=== PATIENT | male | born 1950 | race Caucasian/White ===

== ENCOUNTER 2017-02-06 13:20 | Outpatient (CLI) | payer MEDICARE, BC ==
--- NOTE | 2017-02-06 15:47 | RAD ---
FOUR VIEWS OF THE LUMBAR SPINE: DATE: 02/06/17. COMPARISON: None. HISTORY: Low back pain with pain radiating down the right leg and into the lateral right thigh. FINDINGS: There is prominent anterolisthesis at the lumbosacral junction on the neutral imaging measuring 2.5 c m. Thus, bilateral L5 pars defects are suspected. On the flexion imaging, the anterolisthesis of L5 on S1 measures 2.6 cm and on extension imaging L5-S1 anterolisthesis measures 2.6 cm. There is prom inent multilevel lower lumbar spine facet hypertrophic change. There is multilevel disk space narrow ing and anterior osteophyte formation within the lower thoracic spine and the upper lumbar spine. At L1-2, there is mild retrolisthesis in the 4-5 mm range, unchanged with flexion and extension. IMPRESSION: Prominent anterolisthesis of L5 on S1 measuring 2.5-2.6 cm as detailed above. POS: BHAVIK
== END 2017-02-06 13:21 | disposition home or self-care (01) ==
LOC: TBSIIMAG 13:20
PROVIDERS: ATTEND Neurological Surgery
DX: M54.16 Radiculopathy, lumbar region (principal); Z98.890 Other specified postprocedural states
CPT/HCPCS: 72110; 72148

== ENCOUNTER 2017-02-18 11:41 | Day surgery (SDC) | payer MEDICARE, BC ==
[2017-02-17 11:34] VITALS: BMI 33.2
[2017-02-18] MEDS ORDERED: Diprivan 20 ML ONE (14:24)
[2017-02-18] MEDS ORDERED: Fentanyl 100 MCG/2 ML VIAL ONE (15:15)
--- NOTE | 2017-02-18 16:37 | MRI ---
EXAM: LUMBAR SPINE MRI WITHOUT CONTRAST 02/18/17 HISTORY: Lumbar radiculopathy. Back pain. Right hip, leg and knee pain. COMPARISON: None. TECHNIQUE: Lumbar spine MRI is performed without intravenous gadolinium administration. Multisequential, multipl bridgett imaging is performed. FINDINGS: Limited evaluation due to motion degradation. There is intrinsic T1 and T2 hyperintensity at the L1 l evel, compatible with hemangioma. There is grade II (1.6 cm) anterolisthesis of L5 upon S1. There is associated bilateral pars defects. Symmetric signal intensity of the psoas muscles. Appropriate signal intensity in visualized solid org ans. The conus medullaris terminates at the mid to lower aspect of T12. T12-L1: No high grade central canal stenosis. No high grade foraminal narrowing. L1-L2: Minimal disc desiccation. No significant posterior disc abnormality. No significant central ca nal stenosis. Mild right foraminal narrowing. Left neural foramen is patent. L2-L3: Disc desiccation without significant loss of disc space height. Generalized disc bulge, ligame ntum flavum thickening and facet hypertrophy result in mild central canal stenosis. Moderate bilatera l foraminal narrowing. L3-L4: Minimal disc desiccation without significant loss of disc space height. Generalized disc bulge does not cause any significant central canal stenosis. Mild posterior element hypertrophy. Neural fo ramina are patent bilaterally. L4-L5: Disc desiccation without significant loss of disc space height. No high grade central canal st enosis. Mild right and severe left foraminal narrowing. There is inferior disc extrusion into the rig ht subarticular zone. Disc material abuts but does not completely obscure the traversing right L5 ner ve root. L5-S1: Disc desiccation with severe loss of disc space height. Limited evaluation of the central spin al canal. No high grade central canal stenosis. Severe right and left foraminal narrowing. IMPRESSION: 1. Grade II anterolisthesis of L5 upon S1 with associated spondylolysis. 2. Significant foraminal stenosis at L4-L5 and L5-S1. 3. Inferior disc extrusion at the L4-L5 level. Disc material abuts but does not completely obscu re the traversing right L5 nerve root. POS: [facility]
== END 2017-02-18 16:31 | disposition home or self-care (01) ==
LOC: SDC/OP 11:41 → EDSTATUS 14:00 → SDC/OP 16:31
PROVIDERS: ATTEND Neurological Surgery
DX: M54.16 Radiculopathy, lumbar region (principal); I10 Essential (primary) hypertension; E78.5 Hyperlipidemia, unspecified; G47.30 Sleep apnea, unspecified; Z79.84 Long term (current) use of oral hypoglycemic drugs; Z79.899 Other long term (current) drug therapy; Z88.1 Allergy status to other antibiotic agents; Z98.890 Other specified postprocedural states
CPT/HCPCS: 72148; 96374; J2704; J3010

== ENCOUNTER 2017-03-17 08:45 | Inpatient (IN) | payer MEDICARE, BC ==
[2017-03-24] MEDS ORDERED: Sodium Chloride 0.9% 10 ML ONE (06:29)
[2017-03-24] MEDS ORDERED: Phenylephrine 10 MG/NS 250 ML 0 ML ONE (07:01)
[2017-03-24] MEDS ORDERED: Clindamycin/D5W 900 mg/50 ml Premix Bag ONE (07:01)
[2017-03-24] MEDS ORDERED: Vecuronium 10 MG VIAL ONE (07:01)
[2017-03-24] MEDS ORDERED: Levofloxacin 500 mg/D5W 100 ml Premix Bag ONE (07:01)
[2017-03-24] MEDS ORDERED: Albumin 5% 0 ML ONE (07:01)
[2017-03-24] MEDS ORDERED: Midazolam HCl 2 mg/2 ml Vial ONE (07:18)
[2017-03-24] MEDS ORDERED: Fentanyl 250 MCG/5 ML VIAL ONE (07:19)
[2017-03-24] MEDS ORDERED: Ondansetron HCl/PF 4 MG/2 ML Vial IVP PRN (08:38)
[2017-03-24] MEDS ORDERED: Promethazine HCl 25 MG/ML VIAL SLOW IVP PRN (08:38)
[2017-03-24] MEDS ORDERED: Meperidine HCl/PF 25 MG/ML VIAL SLOW IVP PRN (08:38)
[2017-03-24] MEDS ORDERED: HYDROmorphone 2 MG/ML VIAL SLOW IVP PRN (08:38)
[2017-03-24] MEDS ORDERED: Promethazine HCl 25 MG/ML VIAL IM PRN ×2 (08:38→15:44)
[2017-03-24] MEDS ORDERED: Morphine Sulfate 2 MG/ML SYRINGE SLOW IVP PRN (08:38)
--- NOTE | 2017-03-24 09:42 | OP ---
DATE OF PROCEDURE: 03/24/2017 SURGEON: Oral Zaman M.D. COMPTOMETER OPERATOR: Koby Eason PROCEDURES: L5-S1 right laminectomy, facetectomy, foraminotomy, posterolateral arthrodesis, pedicle screw instrumentation L5-S1, demineralized bone matrix, local morselized autograft. PROCEDURE IN DETAIL: The patient was brought the operating room, intubated. He was rolled in the pr one position on gel-filled chest rolls. Incision made exposing L5 and S1 bilaterally and our level w as confirmed by x-ray. We performed a right L5-S1 laminectomy, facetectomy, and foraminotomy complet brenda decompressing the right L5 nerve root. As expected, there were severe bilateral pars defects. We next placed pedicle screws at L5 and S1 bilaterally using lateral fluoroscopic guidance and the po sitioning was confirmed with rotational x-ray. A malgorzata was secured between the screws. Distraction an d reduction was applied bilaterally. All nuts were final tightened. The wound was then extensively irrigated, immaculate hemostasis was secured. A combination of demineralized bone matrix and local m orselized autograft was laid over the laminar surfaces on the left. Vancomycin powder was applied an d the wound was closed in anatomic layers.
[2017-03-24] MEDS ORDERED: Fentanyl 100 MCG/2 ML VIAL ONE ×2 (09:56→10:42)
[2017-03-24] MEDS ORDERED: Ketorolac Tromethamine 30 MG/ML VIAL ONE (10:03)
[2017-03-24] MEDS ORDERED: Ondansetron HCl/PF 4 MG/2 ML Vial ONE (15:04)
[2017-03-24] MEDS ORDERED: Lidocaine 1% PF 5 ML VIAL ONE (15:04)
[2017-03-24] MEDS ORDERED: Metoclopramide HCl 10 MG/2 ML VIAL ONE (15:04)
[2017-03-24] MEDS ORDERED: ePHEDrine/0.9% NaCl/PF SYRINGE 50 mg/10 ml ONE (15:04)
[2017-03-24] MEDS ORDERED: PROPOFOL 200 MG/20 ML VIAL ONE (15:04)
[2017-03-24] MEDS ORDERED: Dexamethasone 20 MG/5 ML VIAL ONE (15:04)
[2017-03-24] MEDS ORDERED: PHENYLEPHRINE-NS 100 MCG/ML 10 ML SYRINGE ONE (15:04)
[2017-03-24] MEDS ORDERED: Glycopyrrolate 0.2 MG/ML 5 ML SYRINGE ONE (15:04)
[2017-03-24] MEDS ORDERED: Promethazine 25 MG TAB PO PRN (15:44)
[2017-03-24] MEDS ORDERED: diphenhydrAMINE 50 MG/ML VIAL IVP PRN (15:44)
[2017-03-24] MEDS ORDERED: traMADol HCl 50 MG TAB PO PRN (15:44)
[2017-03-24] MEDS ORDERED: HYDROcodone/Acetaminophen 10/325 mg Tablet PO PRN (15:44)
[2017-03-24] MEDS ORDERED: Milk Of Magnesia 30 ML UDCUP PO PRN (15:44)
[2017-03-24] MEDS ORDERED: diphenhydrAMINE 25 MG CAP PO PRN (15:44)
[2017-03-24] MEDS ORDERED: Promethazine HCl 12.5 MG SUPP PR PRN (15:44)
[2017-03-24] MEDS ORDERED: Mag-Al 1200 mg/1200 mg/30 ML UDCUP PO PRN (15:44)
[2017-03-24] MEDS ORDERED: Ondansetron HCl/PF 4 MG/2 ML Vial IM PRN (15:44)
[2017-03-24] MEDS ORDERED: Morphine 2 MG/ML SYRINGE SLOW IVP PRN (15:51)
[2017-03-24] MEDS ORDERED: Morphine 5 MG/ML SYRINGE SLOW IVP PRN (15:52)
[2017-03-24] MEDS: Sodium Chloride 0.9% 1,000 ML IV SCH (16:15)
[2017-03-24] MEDS: HYDROcodone/Acetaminophen 10/325 mg Tablet PO PRN ×2 (18:23→23:18)
[2017-03-24] MEDS: Tamsulosin HCl 0.4 MG CAP PO SCH (22:07)
[2017-03-24] MEDS: Magnesium Oxide 400 MG TAB PO SCH (22:08)
[2017-03-24] MEDS: metFORMIN 500 MG TAB PO SCH (22:08)
[2017-03-24] MEDS: Pravastatin Sodium 40 MG TAB PO SCH (22:09)
[2017-03-24] MEDS: Finasteride 5 MG TAB PO SCH (22:09)
[2017-03-24] MEDS: Stress 600 With Zinc 1 TAB PO SCH (23:20)
[2017-03-25] MEDS: HYDROcodone/Acetaminophen 10/325 mg Tablet PO PRN ×4 (04:22→16:29)
[2017-03-25] MEDS: Sodium Chloride 0.9% 1,000 ML IV SCH ×2 (04:29→19:49)
[2017-03-25] MEDS ORDERED: Clopidogrel Bisulfate 75 MG TAB ONE (07:58)
[2017-03-25] MEDS: metFORMIN 500 MG TAB PO SCH ×2 (08:03→21:40)
[2017-03-25] MEDS: Lisinopril 20 MG TAB PO SCH (08:04)
[2017-03-25] MEDS: Multivit, Therapeutic 1 TAB PO SCH (08:04)
[2017-03-25] MEDS: Glimepiride 2 MG TAB PO SCH ×2 (08:06→16:34)
[2017-03-25 12:30] VITALS: BMI 32.1
[2017-03-25] MEDS: Magnesium Oxide 400 MG TAB PO SCH (21:39)
[2017-03-25] MEDS: tiZANidine HCl 4 MG TAB PO PRN (21:39)
[2017-03-25] MEDS: traMADol HCl 50 MG TAB PO PRN (21:40)
[2017-03-25] MEDS: Pravastatin Sodium 40 MG TAB PO SCH (21:40)
[2017-03-25] MEDS: Finasteride 5 MG TAB PO SCH (21:40)
[2017-03-25] MEDS: Tamsulosin HCl 0.4 MG CAP PO SCH (21:40)
[2017-03-25] MEDS: Stress 600 With Zinc 1 TAB PO SCH (21:42)
[2017-03-26] MEDS: Glimepiride 2 MG TAB PO SCH ×2 (06:50→16:17)
[2017-03-26] MEDS ORDERED: Fleet Enema 133 ML BOT FS PRN (08:44)
[2017-03-26] MEDS ORDERED: Dexamethasone 10 MG/ML VIAL SLOW IVP SCH (08:45)
[2017-03-26] MEDS: Lisinopril 20 MG TAB PO SCH (09:18)
[2017-03-26] MEDS: HYDROcodone/Acetaminophen 10/325 mg Tablet PO PRN (09:18)
[2017-03-26] MEDS: metFORMIN 500 MG TAB PO SCH ×2 (09:18→20:14)
[2017-03-26] MEDS: Multivit, Therapeutic 1 TAB PO SCH (09:19)
[2017-03-26] MEDS: Sodium Chloride 0.9% 1,000 ML IV SCH ×2 (09:20→21:13)
[2017-03-26] MEDS: traMADol HCl 50 MG TAB PO PRN (12:46)
[2017-03-26] MEDS: tiZANidine HCl 4 MG TAB PO PRN (12:46)
[2017-03-26] MEDS ORDERED: Dextrose 5% in Water 1,000 ML IV PRN (16:34)
[2017-03-26] MEDS ORDERED: Dextrose 50% Abboject 50 ML SYRINGE IVP PRN (16:34)
[2017-03-26] MEDS: HumaLOG 300 UNITS/3 ML VIAL SC PRN ×2 (17:14→20:59)
[2017-03-26] MEDS: Finasteride 5 MG TAB PO SCH (20:14)
[2017-03-26] MEDS: Magnesium Oxide 400 MG TAB PO SCH (20:14)
[2017-03-26] MEDS: Pravastatin Sodium 40 MG TAB PO SCH (20:14)
[2017-03-26] MEDS: Tamsulosin HCl 0.4 MG CAP PO SCH (20:14)
[2017-03-26] MEDS: Stress 600 With Zinc 1 TAB PO SCH (20:14)
--- NOTE | 2017-03-26 20:41 | PDOC.PN ---
- Subjective Encounter Start Date: 03/26/17 Encounter Start Time: 20:39 Pt seen for management of medical comorbidities, including diabetes mellitus. No chest pain or shortness of breath. - Objective MAR Reviewed: Yes Vital Signs & Weight: Vital Signs (12 hours) Temp Pulse Pulse Pulse Resp BP BP 03/26/17 20:00 97.6 F 95 19 03/26/17 16:34 98 F 84 20 03/26/17 12:57 98.2 F 100 16 03/26/17 09:54 100 93 137/73 03/26/17 09:18 132/81 03/26/17 09:03 98 F 98 16 BP BP Pulse Ox 03/26/17 20:00 126/68 93 L 03/26/17 16:34 116/70 92 L 03/26/17 12:57 157/83 H 93 L 03/26/17 09:54 157/75 H 03/26/17 09:18 03/26/17 09:03 159/82 H 96 Weight Weight 244 lb I&O: 03/25/17 03/26/17 03/27/17 06:59 06:59 06:59 Intake Total 1875 1080 Output Total 325 Balance 1875 755 Additional Labs: Accuchecks 03/26/17 03/26/17 03/26/17 20:23 15:55 11:03 POC Glucose 282 H 433 H 213 H 03/26/17 03/25/17 05:32 20:45 POC Glucose 174 H 245 H Phys Exam - Physical Examination Obese HEENT: moist MMs, oral pharynx no lesions Neck: supple Cardiovascular: RRR Gastrointestinal: soft Neurological: moves all 4 limbs Psychiatric: normal affect Dx/Plan (1) DM2 (diabetes mellitus, type 2) Status: Chronic (2) HTN (hypertension) Code(s): I10 - ESSENTIAL (PRIMARY) HYPERTENSION Status: Chronic (3) DUGLAS (obstructive sleep apnea) Code(s): G47.33 - OBSTRUCTIVE SLEEP APNEA (ADULT) (PEDIATRIC) Status: Chronic (4) Chronic back pain Code(s): M54.9 - DORSALGIA, UNSPECIFIED; G89.29 - OTHER CHRONIC PAIN Status: Chronic - Plan plan discussed w/ family * . Continue insulin sliding scale (aggressive), continue accuchecks. Hyperglycemia likely a combination of steroids and stress response. Monitor vital sighns, titrate antihypertensives as needed. PRN IV hydralazine. CPAP use when asleep. s/p back surgery. DVT prophylaxis and pain management per neurosurgery service. Code status: full Review of Systems - Review of Systems Respiratory: negative: Cough, Dry, Shortness of Breath, Hemoptysis, SOB with Excertion, Pleuritic Pain, Sputum, Wheezing Cardiovascular: negative: chest pain, palpitations, orthopnea, paroxysmal nocturnal dyspnea, edema, light headedness - Medications/Allergies Allergies/Adverse Reactions: Allergies Allergy/AdvReac Type Severity Reaction Status Date / Time cephalexin [From Keflex] Allergy itching Verified 03/17/17 09:26 and swelling Medications: Current Medications Hydrocodone Bitart/Acetaminophen ([place] 10/325) 1 tab PO Q4H PRN PRN Reason: PAIN (1-3) Last Admin: 03/25/17 21:41 Dose: 1 tab Hydrocodone Bitart/Acetaminophen ([place] 10/325) 2 tab PO Q4H PRN PRN Reason: PAIN (4-6) Last Admin: 03/26/17 09:18 Dose: 2 tab Al Hydroxide/Mg Hydroxide (Maalox) 30 ml PO Q4H PRN PRN Reason: Heartburn or Indigestion Dextrose/Water (Dextrose 50%) 25 gm IVP PRN PRN PRN Reason: HYPOGLYCEMIA PROTOCOL Diphenhydramine HCl (Benadryl) 25 mg PO Q6H PRN PRN Reason: Itching Diphenhydramine HCl (Benadryl) 25 mg IVP Q6H PRN PRN Reason: Itching Finasteride (Proscar) 5 mg PO HS [facility] Last Admin: 03/26/17 20:14 Dose: 5 mg Glimepiride (Amaryl) 2 mg PO BID-AC [facility] Last Admin: 03/26/17 16:17 Dose: 2 mg Glucagon (Glucagon) 1 mg IM PRN PRN PRN Reason: HYPOGLYCEMIA PROTOCOL Sodium Chloride (Normal Saline 0.9%) 1,000 mls @ 75 mls/hr IV .[id number] [facility] Last Admin: 03/26/17 09:20 Dose: Not Given Dextrose/Water (D5w) 1,000 mls @ 0 mls/hr IV INF PRN; As Directed PRN Reason: HYPOGLYCEMIA PROTOCOL Insulin Human Lispro (Humalog) 0 units SC .AGGRESSIVE SLIDING PRN; Protocol PRN Reason: AGGRESSIVE SLIDING SCALE Last Admin: 03/26/17 17:14 Dose: 13 unit Lisinopril (Zestril) 20 mg PO DAILY [facility] Last Admin: 03/26/17 09:18 Dose: 20 mg Magnesium Hydroxide (Milk Of Magnesium) 30 ml PO Q12H PRN PRN Reason: Constipation Last Admin: 03/26/17 06:50 Dose: 30 ml Magnesium Oxide (Magnesium Oxide) 400 mg PO HS [facility] Last Admin: 03/26/17 20:14 Dose: 400 mg Metformin HCl (Glucophage) 1,000 mg PO BID [facility] Last Admin: 03/26/17 20:14 Dose: 1,000 mg Morphine Sulfate (Morphine) 2 mg SLOW IVP Q1H PRN PRN Reason: Moderate Breakthrough Pain Last Admin: 03/24/17 16:10 Dose: 2 mg Morphine Sulfate (Morphine) 4 mg SLOW IVP Q1H PRN PRN Reason: Severe Breakthrough Pain Multivitamins (Theragran) 1 tab PO DAILY [facility] Last Admin: 03/26/17 09:19 Dose: 1 tab Multivitamins/Zinc (Stress 600 With Zinc) 1 tab PO QPM [facility] Last Admin: 03/26/17 20:14 Dose: 1 tab Ondansetron HCl (Zofran) 4 mg IM Q24H PRN PRN Reason: Nausea/Vomiting Pantoprazole Sodium (Protonix) 20 mg PO DAILY [facility] Last Admin: 03/26/17 09:19 Dose: 20 mg Pravastatin Sodium (Pravachol) 40 mg PO HS [facility] Last Admin: 03/26/17 20:14 Dose: 40 mg Promethazine HCl (Phenergan) 12.5 mg IM Q4H PRN PRN Reason: Nausea/Vomiting Promethazine HCl (Phenergan) 12.5 mg PO Q4H PRN PRN Reason: Nausea/Vomiting Promethazine HCl (Phenergan Suppository) 12.5 mg [place] Q4H PRN PRN Reason: Nausea/Vomiting Sodium Biphosphate/Sodium Phosphate (Fleet Enema) 133 ml FS WILLCALL PRN PRN Reason: CONSTIPATION Last Admin: 03/26/17 13:54 Dose: 133 ml Sodium Chloride (Flush - Normal Saline) 10 ml IVF PRN PRN PRN Reason: Saline Flush Last Admin: 03/25/17 21:39 Dose: 10 ml Tamsulosin HCl (Flomax) 0.4 mg PO HS [facility] Last Admin: 03/26/17 20:14 Dose: 0.4 mg Tizanidine HCl (Zanaflex) 4 mg PO Q6H PRN PRN Reason: MUSCLE SPASM Last Admin: 03/26/17 12:46 Dose: 4 mg Tramadol HCl (Ultram) 50 mg PO Q6H PRN PRN Reason: PAIN (1-3) Last Admin: 03/24/17 22:06 Dose: 50 mg Tramadol HCl (Ultram) 100 mg PO Q6H PRN PRN Reason: PAIN (4-6) Last Admin: 03/26/17 12:46 Dose: 100 mg
[2017-03-26] MEDS ORDERED: hydrALAZINE 20 MG/ML VIAL SLOW IVP PRN (20:48)
[2017-03-27] MEDS: tiZANidine HCl 4 MG TAB PO PRN ×2 (03:09→11:49)
[2017-03-27] MEDS: traMADol HCl 50 MG TAB PO PRN (03:09)
[2017-03-27] MEDS: Glimepiride 2 MG TAB PO SCH (06:37)
[2017-03-27] MEDS: HumaLOG 300 UNITS/3 ML VIAL SC PRN ×2 (06:37→11:50)
[2017-03-27] MEDS: Lisinopril 20 MG TAB PO SCH (09:59)
[2017-03-27] MEDS: Multivit, Therapeutic 1 TAB PO SCH (10:00)
[2017-03-27] MEDS: metFORMIN 500 MG TAB PO SCH (10:00)
[2017-03-27 11:42] VITALS: BP 150/70; TEMP 97.6
[2017-03-27] MEDS: Sodium Chloride 0.9% 1,000 ML IV SCH (11:46)
[2017-03-27] MEDS: HYDROcodone/Acetaminophen 10/325 mg Tablet PO PRN (11:49)
--- NOTE | 2017-03-27 15:22 | PDOC.EVN ---
Event Note - Event Note Event Note: Pt DCed by primary team. Chart,meds reviewed and Med rec done. Ok to Dc from IM stand point.Pt not seen due to discharged status
--- NOTE | 2017-03-28 14:35 | DIS ---
DATE OF DISCHARGE: 03/27/2017 DISCHARGE SUMMARY: Patient is a 66-year-old male with a past medical history of diabetes, hypertension, chronic back pain, who was seen recently in our clinic regarding his worsening low back pain and right L5 radiculopathy. His MRI revealed L5-S1 spondylolisthesis and patient was recommend ed for L5-S1 decompression and fusion. The patient underwent L5-S1 decompression and fusion on 03/24 without complication. Following the surgery, the patient was slow to mobilized secondary to pa in as well as generalized deconditioning. He was tolerating regular diet, voiding appropriately. He initially had some issues with constipation, but this was improved with a bowel regimen of Milk of M agnesia and Fleet enema x1. His pain was well controlled with p.o. [place] and tizanidine. He did hav e a new left leg pain in a radicular L5 and partially S1 pattern. He was treated with 10 mg of IV De cadron x1 and this did improved his pain; however, it caused elevated glucose with the hospitalist co nsulted for assisted management of his hyperglycemia and this resolved with insulin treatment. Blake franco worked with physical therapy and occupational therapy during this admission course, and was recomm ended for inpatient rehabilitation. His incision remains dry without evidence of infection during hi s admission course. He was discharged to inpatient rehabilitation on 03/27/2017. We will plan to fo llow up with the patient in the office in 2 weeks for recheck and x-rays at that time. The patient's care precautions and reasons to reach out to us sooner. Please reach out to the Neurosurgery Servic e for additional questions or concerns.
== END 2017-03-27 13:45 | DRG 460 ==
LOC: SJJU 03-24 05:30 → SURG B 03-24 13:54
PROVIDERS: ADMIT Neurological Surgery; ATTEND Neurological Surgery
PROC: 0SG3071 Fusion of Lumbosacral Joint with Autologous Tissue Substitute, Posterior Approach, Posterior Column, Open Approach (ICD-10-PCS; principal; 2017-03-24)
PROC: 01NB0ZZ Release Lumbar Nerve, Open Approach (ICD-10-PCS; 2017-03-24)
PROC: 8E0WXBF Computer Assisted Procedure of Trunk Region, With Fluoroscopy (ICD-10-PCS; 2017-03-24)
DX: M43.17 Spondylolisthesis, lumbosacral region (principal); E11.9 Type 2 diabetes mellitus without complications; K59.00 Constipation, unspecified; I10 Essential (primary) hypertension; G47.33 Obstructive sleep apnea (adult) (pediatric); G89.29 Other chronic pain
CPT/HCPCS: 36416; 76001; 96374; A4216; C1713; C1768; G8978-GP-CM; G8979-GP-CK; G8987-GO-CL; G8988-GO-CI; J0131; J1100; J1885; J1956; J2001; J2250; J2270; J2405; J2704; J2765; J3010; J3370; J3490; P9045

== ENCOUNTER 2017-03-17 08:45 | Outpatient (CLI) | payer MEDICARE, BC ==
[2017-03-17 11:09] LABS: Mean Corpuscular HGB CONC 33.2 g/dL (32.0-36.0); Mean Corpuscular Hemoglobin 31.2 pg (27.0-31.0); Mean Corpuscular Volume 94.1 fl (80.0-94.0); Mean Platelet Volume 6.9 fL (7.4-10.4); Platelet Count 182 thou/uL (130-400); RBC Distribution Width 11.6 % (11.5-14.5); Red Blood Cell (RBC) Count 4.81 mill/uL (4.70-6.10)
[2017-03-17 11:25] LABS: Anion Gap 14 mmol/L (10-20); BUN (Urea Nitrogen) 17 mg/dL (8.4-25.7); Calc. Creatinine Clearance 0 mL/min (70-130); Calcium 9.5 mg/dL (7.8-10.44); Carbon Dioxide 28 mmol/L (23-31); Chloride 101 mmol/L (98-107); Estimated GFR-MDRD 86; Glucose 105 mg/dL (80-115); Potassium 4.7 mmol/L (3.5-5.1); Sodium 138 mmol/L (136-145)
--- NOTE | 2017-03-17 17:52 | EKG ---
Test Reason : Blood Pressure : / mmHG Vent. Rate : 076 BPM Atrial Rate : 076 BPM P-R Int : 140 ms QRS Dur : 094 ms QT Int : 390 ms P-R-T Axes : 056 048 027 degrees QTc Int : 438 ms Normal sinus rhythm Normal ECG No previous ECGs available Confirmed by DANIS LAMB, DR. Bermeo ([id number]) on 03/17/2017 5:52:24 PM Referred By: LEROY Confirmed By:DR. Jean-Claude MOSCOSO MD
== END 2017-03-17 08:46 | disposition home or self-care (01) ==
LOC: LABBT 08:45
PROVIDERS: ATTEND Neurological Surgery
DX: Z01.818 Encounter for other preprocedural examination (principal); M43.16 Spondylolisthesis, lumbar region
CPT/HCPCS: 80048; 85027; 93005; 93010

== ENCOUNTER 2017-04-07 06:23 | Inpatient (IN) | payer MEDICARE, BC ==
[2017-04-04 10:42] VITALS: BMI 31.1
[2017-04-07 07:01] LABS: #Basophils 0.1 thou/uL (0.0-0.2); #Eosinphils 0.5 thou/uL (0.0-0.7); #Lymphocytes 1.7 thou/uL (1.20-3.40); #Neutrophils 7.6 thou/uL (1.40-6.50); %Basophils 0.6 % (0.0-1.0); %Eosinophils 4.3 % (0.0-10.0); %Lymphocytes 15.4 % (21.0-51.0); %Monocytes 9.3 % (0.0-10.0); %Neutrophils 70.5 % (42.0-75.0); Hemoglobin 13.7 g/dL (14.0-18.0); Mean Corpuscular HGB CONC 32.5 g/dL (32.0-36.0); Mean Corpuscular Hemoglobin 30.6 pg (27.0-31.0); Mean Corpuscular Volume 94.2 fl (80.0-94.0); Mean Platelet Volume 6.1 fL (7.4-10.4); Platelet Count 305 thou/uL (130-400); RBC Distribution Width 11.6 % (11.5-14.5); Red Blood Cell (RBC) Count 4.49 mill/uL (4.70-6.10); White Blood Cell (WBC) Count 10.8 thou/uL (4.8-10.8)
[2017-04-07 07:20] LABS: Anion Gap 11 mmol/L (10-20); BUN (Urea Nitrogen) 17 mg/dL (8.4-25.7); Calc. Creatinine Clearance 139 mL/min (70-130); Calcium 9.4 mg/dL (7.8-10.44); Carbon Dioxide 30 mmol/L (23-31); Chloride 97 mmol/L (98-107); Estimated GFR-MDRD Greater than 90; Glucose 195 mg/dL (80-115); Potassium 4.2 mmol/L (3.5-5.1); Sodium 134 mmol/L (136-145)
[2017-04-07] MEDS ORDERED: CEFAZOLIN/Water 2 GM/20 ML SYRINGE ONE (07:21)
[2017-04-07] MEDS ORDERED: Fentanyl 100 MCG/2 ML VIAL ONE ×5 (07:21→11:49)
[2017-04-07] MEDS ORDERED: Famotidine/PF 20 mg/2ml Vial ONE (07:59)
[2017-04-07] MEDS ORDERED: Sodium Chloride 0.9% 10 ML ONE (09:14)
[2017-04-07] MEDS ORDERED: Levofloxacin 500 mg/D5W 100 ml Premix Bag ONE (09:25)
[2017-04-07] MEDS ORDERED: Clindamycin/D5W 900 mg/50 ml Premix Bag ONE (09:25)
[2017-04-07] MEDS ORDERED: Ondansetron HCl/PF 4 MG/2 ML Vial IVP PRN (10:43)
[2017-04-07] MEDS ORDERED: Promethazine HCl 25 MG/ML VIAL SLOW IVP PRN (10:43)
[2017-04-07] MEDS ORDERED: Acetaminophen/Codeine 30-300mg Tablet PO PRN (11:02)
[2017-04-07] MEDS ORDERED: HYDROcodone/Acetaminophen 10/325 mg Tablet PO PRN ×2 (11:03→11:11)
[2017-04-07] MEDS ORDERED: tiZANidine HCl 4 MG TAB PO PRN (11:08)
[2017-04-07] MEDS ORDERED: Mag-Al 1200 mg/1200 mg/30 ML UDCUP PO PRN (11:11)
[2017-04-07] MEDS ORDERED: Promethazine HCl 12.5 MG SUPP PR PRN (11:11)
[2017-04-07] MEDS ORDERED: Milk Of Magnesia 30 ML UDCUP PO PRN (11:11)
[2017-04-07] MEDS ORDERED: Ondansetron HCl/PF 4 MG/2 ML Vial IM PRN (11:11)
[2017-04-07] MEDS ORDERED: diphenhydrAMINE 25 MG CAP PO PRN (11:11)
[2017-04-07] MEDS ORDERED: diphenhydrAMINE 50 MG/ML VIAL IVP PRN (11:11)
[2017-04-07] MEDS ORDERED: traMADol HCl 50 MG TAB PO PRN ×2 (11:11)
[2017-04-07] MEDS ORDERED: Promethazine 25 MG TAB PO PRN (11:11)
[2017-04-07] MEDS ORDERED: Promethazine HCl 25 MG/ML VIAL IM PRN (11:11)
[2017-04-07] MEDS ORDERED: Morphine 5 MG/ML SYRINGE SLOW IVP PRN (11:14)
--- NOTE | 2017-04-07 12:24 | OP ---
SURGEON: Oral Zaman M.D. INVERTER AND CLIPPER: Koby Eason PROCEDURE: Exploration spinal fusion L5-S1, removal of hardware, left L5-S1, BMP, cancellous bone ch ips. PROCEDURE IN DETAIL: The patient was brought into the operating room, intubated. He was rolled in t he prone position on gel-filled chest rolls. The previous incision was reopened and the L5-S1 region was exposed. We explored the left L5-S1 fusion and the hardware and the left L5 screws seemed to be loose. We removed the left side hardware in its entirety. After hemostasis was secured, the wound was extensively irrigated. We placed BMP soaked Gelfoam with cancellous allograft in the left L5-S1 region for the purpose of arthrodesis. Vancomycin powder was then applied and the wound was closed i n anatomic layers.
[2017-04-07] MEDS ORDERED: Clindamycin 150 MG CAP PO SCH (13:00)
[2017-04-07] MEDS ORDERED: Clindamycin/D5W 900 MG in Premix Bag 1 BAG IVPB SCH (14:00)
[2017-04-07] MEDS ORDERED: Propofol 200 MG/20 ML VIAL ONE (15:09)
[2017-04-07] MEDS ORDERED: Glycopyrrolate 0.2 MG/ML 5 ML SYRINGE ONE (15:09)
[2017-04-07] MEDS ORDERED: Ondansetron HCl/PF 4 MG/2 ML Vial ONE (15:09)
[2017-04-07] MEDS ORDERED: Esmolol 100 MG/10 ML VIAL ONE (15:09)
[2017-04-07] MEDS ORDERED: Dexamethasone 20 MG/5 ML VIAL ONE (15:09)
[2017-04-07] MEDS ORDERED: Lidocaine 1% PF 5 ML VIAL ONE (15:09)
[2017-04-07] MEDS ORDERED: PHENYLEPHRINE-NS 100 MCG/ML 10 ML SYRINGE ONE (15:09)
[2017-04-07] MEDS: HYDROcodone/Acetaminophen 10/325 mg Tablet PO PRN ×2 (15:20→21:12)
[2017-04-07] MEDS: Sodium Chloride 0.9% 1,000 ML IV SCH (15:41)
[2017-04-07] MEDS: metFORMIN 500 MG TAB PO SCH (17:41)
[2017-04-07] MEDS: Clindamycin/D5W 900 MG in Premix Bag 1 BAG IVPB SCH (17:41)
[2017-04-07] MEDS: Glimepiride 2 MG TAB PO SCH (18:45)
[2017-04-07] MEDS ORDERED: hydrALAZINE 20 MG/ML VIAL SLOW IVP PRN (20:01)
[2017-04-07] MEDS ORDERED: Dextrose 50% Abboject 50 ML SYRINGE SLOW IVP PRN (20:01)
[2017-04-07] MEDS ORDERED: Dextrose 5% in Water 1,000 ML IV PRN (20:01)
[2017-04-07] MEDS ORDERED: Insulin Regular 300 UNITS/3 ML VIAL SC PRN (20:01)
[2017-04-07] MEDS ORDERED: Finasteride 5 MG TAB PO SCH (21:00)
[2017-04-07] MEDS ORDERED: Tamsulosin HCl 0.4 MG CAP PO SCH (21:00)
[2017-04-07] MEDS ORDERED: Stress 600 With Zinc 1 TAB PO SCH (21:00)
[2017-04-07] MEDS ORDERED: Multivit, Therapeutic 1 TAB PO SCH (21:00)
[2017-04-07] MEDS ORDERED: Magnesium Oxide 400 MG TAB PO SCH (21:00)
[2017-04-07] MEDS ORDERED: Atorvastatin Calcium 10 MG TAB PO SCH (21:00)
--- NOTE | 2017-04-07 21:57 | PDOC.PN ---
- Subjective Encounter Start Date: 04/07/17 Encounter Start Time: 19:00 Patient seen and examined. No new complaints. Consult for med mngt. Pain controlled. - Objective MAR Reviewed: Yes Vital Signs & Weight: Vital Signs (12 hours) Temp Pulse Resp BP Pulse Ox 04/07/17 20:00 98.3 F 107 H 16 117/73 94 L 04/07/17 14:41 98.0 F 98 18 94 L Weight Weight 229 lb 15.991 oz I&O: 04/06/17 04/07/17 04/08/17 06:59 06:59 06:59 Output Total 900 Balance -900 Result Diagrams: 04/07/17 06:53 04/07/17 06:53 Additional Labs: Accuchecks 04/07/17 20:41 POC Glucose 284 H EKG Reviewed by me: Yes (SR) Phys Exam - Physical Examination Constitutional: NAD Respiratory: no wheezing, no rhonchi Cardiovascular: RRR, no rub Gastrointestinal: soft, non-tender, positive bowel sounds Musculoskeletal: no edema Neurological: non-focal, moves all 4 limbs Dx/Plan - Plan DVT proph w/SCDs IMPRESSION: 1. DM2 - on Glimepiride 2. HLD - on Pravastatin 3. DUGLAS - on CPAP 4. HTN - on Lisinopril 5. BPH - on Flomax/Finasteride 6. GERD - on PPI 7. Obesity BMI 31.2 PLAN: * Add Mild Insulin sliding scale with ACHS * Cont Glimepiride * Cont current home meds as below * Cont PT/OT * Add PRN BP meds * Will follow. Thank you for this consultation. * Full Code. DPOA - self/family Review of Systems - Review of Systems Respiratory: negative: Cough, Dry, Shortness of Breath, Hemoptysis, SOB with Excertion, Pleuritic Pain, Sputum, Wheezing Cardiovascular: negative: chest pain, palpitations, orthopnea, paroxysmal nocturnal dyspnea, edema, light headedness Gastrointestinal: negative: Nausea, Vomiting, Abdominal Pain, Diarrhea, Constipation, Melena, Hematochezia Genitourinary: negative: Dysuria, Frequency, Incontinence, Hematuria, Retention - Medications/Allergies Allergies/Adverse Reactions: Allergies Allergy/AdvReac Type Severity Reaction Status Date / Time cephalexin [From Keflex] Allergy itching Verified 04/04/17 10:42 and swelling Medications: Current Medications Acetaminophen/Codeine Phosphate (Tylenol #3) 2 tab PO DAILYPRN PRN PRN Reason: Pain Hydrocodone Bitart/Acetaminophen ([place] 10/325) 1 tab PO Q6H PRN PRN Reason: Moderate Pain (4-6) Hydrocodone Bitart/Acetaminophen ([place] 10/325) 1 tab PO Q4H PRN PRN Reason: PAIN (1-3) Hydrocodone Bitart/Acetaminophen ([place] 10/325) 2 tab PO Q4H PRN PRN Reason: PAIN (4-6) Last Admin: 04/07/17 21:12 Dose: 2 tab Al Hydroxide/Mg Hydroxide (Maalox) 30 ml PO Q4H PRN PRN Reason: Heartburn or Indigestion Atorvastatin Calcium (Lipitor) 10 mg PO [facility] Last Admin: 04/07/17 21:11 Dose: 10 mg Dextrose/Water (Dextrose 50%) 25 gm SLOW IVP PRN PRN PRN Reason: Hypoglycemia Diphenhydramine HCl (Benadryl) 25 mg PO Q6H PRN PRN Reason: Itching Diphenhydramine HCl (Benadryl) 25 mg IVP Q6H PRN PRN Reason: Itching Finasteride (Proscar) 5 mg PO [facility] Last Admin: 04/07/17 21:11 Dose: 5 mg Glimepiride (Amaryl) 2 mg PO BID-[facility] Last Admin: 04/07/17 18:45 Dose: 2 mg Glucagon (Glucagon) 1 mg IM PRN PRN PRN Reason: Hypoglycemia Hydralazine HCl (Apresoline) 10 mg SLOW IVP Q4H PRN PRN Reason: SBP Greater Than 180 Sodium Chloride (Normal Saline 0.9%) 1,000 mls @ 75 mls/hr IV .[id number] [facility] Last Admin: 04/07/17 15:41 Dose: Not Given Clindamycin Phosphate/Dextrose (900 mg/ Device) 50 mls @ 100 mls/hr IVPB 0100, 0900,1700 [facility] Stop: 04/08/17 01:29 Last Admin: 04/07/17 17:41 Dose: 50 mls Dextrose/Water (D5w) 1,000 mls @ 0 mls/hr IV .Q0M PRN; As Directed PRN Reason: Hypoglycemia Insulin Human Regular (Humulin R) 0 units SC .MILD SLIDING SCALE PRN PRN Reason: Mild Correctional Scale Insulin Human Regular (Humulin R) 0 units SC .BEDTIME SLIDING SC PRN PRN Reason: Bedtime Correctional Scale Last Admin: 04/07/17 21:19 Dose: 3 unit Lisinopril (Zestril) 20 mg PO QAM [facility] Magnesium Hydroxide (Milk Of Magnesium) 30 ml PO Q12H PRN PRN Reason: Constipation Magnesium Oxide (Magnesium Oxide) 400 mg PO [facility] Last Admin: 04/07/17 21:10 Dose: 400 mg Metformin HCl (Glucophage) 1,000 mg PO BID-[facility] Last Admin: 04/07/17 17:41 Dose: 1,000 mg Morphine Sulfate (Morphine) 2 mg SLOW IVP Q1H PRN PRN Reason: Moderate Breakthrough Pain Morphine Sulfate (Morphine) 4 mg SLOW IVP Q1H PRN PRN Reason: Severe Breakthrough Pain Multivitamins (Theragran) 1 tab PO QPM [facility] Last Admin: 04/07/17 21:10 Dose: 1 tab Multivitamins/Zinc (Stress 600 With Zinc) 1 tab PO QPM [facility] Last Admin: 04/07/17 21:11 Dose: 1 tab Ondansetron HCl (Zofran) 4 mg IM Q24H PRN PRN Reason: Nausea/Vomiting Pantoprazole Sodium (Protonix) [facility] [place] Promethazine HCl (Phenergan) 12.5 mg IM Q4H PRN PRN Reason: Nausea/Vomiting Promethazine HCl (Phenergan) 12.5 mg PO Q4H PRN PRN Reason: Nausea/Vomiting Promethazine HCl (Phenergan Suppository) 12.5 mg [place] Q4H PRN PRN Reason: Nausea/Vomiting Sodium Chloride (Flush - Normal Saline) 10 ml IVF PRN PRN PRN Reason: Saline Flush Tamsulosin HCl (Flomax) 0.4 mg PO [facility] Last Admin: 04/07/17 21:10 Dose: 0.4 mg Tizanidine HCl (Zanaflex) 4 mg PO Q6H PRN PRN Reason: Muscle Spasm Tramadol HCl (Ultram) 50 mg PO Q6H PRN PRN Reason: PAIN (1-3) Tramadol HCl (Ultram) 100 mg PO Q6H PRN PRN Reason: PAIN (4-6)
[2017-04-08] MEDS: Clindamycin/D5W 900 MG in Premix Bag 1 BAG IVPB SCH (01:37)
[2017-04-08] MEDS: Sodium Chloride 0.9% 1,000 ML IV SCH (01:37)
[2017-04-08] MEDS: Insulin Regular 300 UNITS/3 ML VIAL SC PRN ×2 (06:51→11:33)
[2017-04-08] MEDS: HYDROcodone/Acetaminophen 10/325 mg Tablet PO PRN ×2 (06:54→12:54)
[2017-04-08] MEDS: metFORMIN 500 MG TAB PO SCH (08:46)
[2017-04-08] MEDS: Glimepiride 2 MG TAB PO SCH (08:48)
[2017-04-08] MEDS ORDERED: Lisinopril 20 MG TAB PO SCH (09:00)
[2017-04-08 12:36] VITALS: BP 136/71; TEMP 97.8
== END 2017-04-08 13:29 | DRG 460 ==
LOC: SURG A 06:31
PROVIDERS: ADMIT Neurological Surgery; ATTEND Neurological Surgery
PROC: 0SG30K1 Fusion of Lumbosacral Joint with Nonautologous Tissue Substitute, Posterior Approach, Posterior Column, Open Approach (ICD-10-PCS; principal; 2017-04-07)
PROC: 0SP304Z Removal of Internal Fixation Device from Lumbosacral Joint, Open Approach (ICD-10-PCS; 2017-04-07)
DX: T84.498A Other mechanical complication of other internal orthopedic devices, implants and grafts, initial encounter (principal); E11.9 Type 2 diabetes mellitus without complications; M54.16 Radiculopathy, lumbar region; I10 Essential (primary) hypertension; E78.5 Hyperlipidemia, unspecified; G47.33 Obstructive sleep apnea (adult) (pediatric); N40.0 Benign prostatic hyperplasia without lower urinary tract symptoms; K21.9 Gastro-esophageal reflux disease without esophagitis; E66.9 Obesity, unspecified; Z68.31 Body mass index [BMI] 31.0-31.9, adult; Z88.1 Allergy status to other antibiotic agents; Z79.84 Long term (current) use of oral hypoglycemic drugs; Z79.899 Other long term (current) drug therapy; Y83.1 Surgical operation with implant of artificial internal device as the cause of abnormal reaction of the patient, or of later complication, without mention of misadventure at the time of the procedure
CPT/HCPCS: 36415; 36416; 80048; 85025; A4216; C1713; G8978-GP-CL; G8979-GP-CJ; G8980-GP-CL; G8987-GO-CL; G8988-GO-CI; J1100; J1815; J1956; J2001; J2405; J2704; J3010; J3370; J3490; S0028

== ENCOUNTER 2017-04-23 09:37 | Outpatient (CLI) | payer MEDICARE, BC ==
--- NOTE | 2017-04-23 11:27 | RAD ---
LUMBAR SPINE TWO VIEWS: History: 66-year-old male with history of low back pain and lumbar radiculopathy. Follow up surgery. FINDINGS: Very severe anterolisthesis of L5 on S1 with right sided stabilization pedicle screws. IMPRESSION: Recent post-operative right sided pedicle screws at L5-S1 stabilizing a severe anterolisthesis of L5 on S1. Generalized spondylosis. POS: BHAVIK
== END 2017-04-23 09:38 | disposition home or self-care (01) ==
LOC: TBSIIMAG 09:37
PROVIDERS: ATTEND Physician Assistant
DX: M47.26 Other spondylosis with radiculopathy, lumbar region (principal); M43.16 Spondylolisthesis, lumbar region; Z98.1 Arthrodesis status
CPT/HCPCS: 72100

== ENCOUNTER 2017-06-05 13:06 | Outpatient (CLI) | payer MEDICARE, BC ==
--- NOTE | 2017-06-05 14:41 | RAD ---
LUMBAR SPINE THREE VIEWS: History: Follow up surgery. Comparison: 04-23-17 FINDINGS: There are left sided pedicle screws at L5-S1. There is a grade II spondylolisthesis at L5-S1 which ap pears stable. Alignment of above L5 is maintained and unchanged. Degenerative changes again noted. IMPRESSION: Post-operative and degenerative changes of the lumbar spine appear stable. POS: [facility]
== END 2017-06-05 13:07 | disposition home or self-care (01) ==
LOC: TBSIIMAG 13:06
PROVIDERS: ATTEND Neurological Surgery
DX: M47.26 Other spondylosis with radiculopathy, lumbar region (principal); Z98.1 Arthrodesis status
CPT/HCPCS: 72100

== ENCOUNTER 2017-08-05 14:54 | Outpatient (CLI) | payer MEDICARE, BC ==
--- NOTE | 2017-08-05 15:51 | RAD ---
LUMBAR SPINE SERIES TWO VIEWS: 08/05/17 HISTORY: Postop. COMPARISON: 06/05/17 study. Postoperative changes are seen at the L5-S1 level. Left sided pedicle screws are present at this leve l. The spondylolisthesis is unchanged. IMPRESSION: Stable postop change. POS: BHAVIK
== END 2017-08-05 14:55 | disposition home or self-care (01) ==
LOC: TBSIIMAG 14:54
PROVIDERS: ATTEND Neurological Surgery
DX: M54.16 Radiculopathy, lumbar region (principal); Z98.890 Other specified postprocedural states
CPT/HCPCS: 72100